=== PATIENT | female | born 1980 | race Two or more races ===

== ENCOUNTER 2025-02-22 09:08 | Emergency (ER) | payer MEDICAID, OTHER ==
[~2025-02-22] VITALS: Ht 157.5 cm; Wt 75.5 kg
--- NOTE | 2025-02-22 10:46 | ED.PDOC ---
History of Present Illness HPI Comments 44F presents to the ER w/ prior SHx of Cholecystectomy and the c/c of back pain. Pt reports on initially having LLQ pain for 10 days which radiates to the left lower back. Denies any other symptoms at this time. Denies Urinary Symptoms, chills, fever, N/V/D, SOB, CP. Denies any other associated symptom's, modifiers, or recent injuries or sick contact at this time. Chief Complaint: Flank Pain Time Seen by MD: 10:45 Reviewed Notes: Nurses Notes, Medications, Allergies Allergies: Coded Allergies: NO KNOWN ALLERGIES (Unverified , 02/22/25) Information Source: Patient Mode of Arrival: Ambulatory Severity: Moderate Timing: Days Duration: Since onset, Days Prehospital treatment: None Past Medical History PAST MEDICAL HISTORY: Denies Surgical History: Cholecystectomy REFRACTORY MANAGER History: No Pertinent REFRACTORY MANAGER History Family History Family History: Reviewed,noncontributory to illness, Unknown Social History Smoker: Non-Smoker Alcohol: Denies ETOH Use Drugs: Denies Drug Use Lives In: Home Constitutional: denies: chills, diaphoresis, fatigue, fever, malaise, sweats, weakness, others EENTM: denies: blurred vision, double vision, ear bleeding, ear discharge, ear drainage, ear pain, ear ringing, eye pain, eye redness, hearing loss, mouth p ain, mouth swelling, nasal discharge, nose bleeding, nose congestion, nose pain, photophobia, tearing, throat pain, throat swelling, voice changes, others Respiratory: denies: cough, hemoptysis, orthopnea, SOB at rest, shortness of br eath, SOB with excertion, stridor, wheezing, others Cardiovascular: denies: chest pain, dizzy spells, diaphoresis, Dyspnea on exertion, edema, irregular heart beat, left arm pain, lightheadedness, palpitations, PND, syncope, others Gastrointestinal: reports: abdominal pain; denies: abdomen distended, blood streaked bowels, constipated, diarrhea, dysphagia, difficulty swallowing, hematemesis, melena, nausea, poor appetite, poor fluid intake, rectal bleeding, rectal pain, vomiting, others Genitourinary: denies: abnormal vagina bleeding, burning, dyspareunia, dysuria, flank pain, frequency, hematuria, incontinence, pain, , vagina discharge, urgency, others Neurological: denies: dizziness, fainting, headache, left sided numbness, left sided weakness, numbness, paresthesia, pre-existing deficit, right sided numbness, right sided weakness, seizure, speech problems, tingling, tremors, weakness, others Musculoskeletal: reports: back pain; denies: gout, joint pain, joint swelling, muscle pain, muscle stiffness, neck pain, others Integumetry: denies: bruises, change in color, change in hair/nails, dryness, laceration, lesions, lumps, rash, wounds, others Allergic/Immunocompromised: denies: Difficulty Healing, Frequent Infections, Hives, Itching, others Hematologic/Lymphatic: denies: anemia, blood clots, easy bleeding, easy bruising, swollen glands, others Endocrine: denies: excessive hunger, excessive sweating, excessive thirst, excessive urination, flushing, intolerance to cold, intolerance to heat, unexplained weight gain, unexplained weight loss, others Psychiatric: denies: anxiety, bipolar disorder, depression, hopeless, panic d isorder, schizophrenia, sleepless, suicidal, others All Other Systems: Reviewed and Negative Physical Exam General Appearance: Moderate Distress, Normal HEENT: Normal ENT Inspection, Pharynx Normal, TMs Normal Neck: Full Range of Motion, Non-Tender, Normal, Normal Inspection Respiratory: Chest Non-Tender, Lungs Clear, No Accessory Muscle Use, No Respiratory Distress, Normal Breath Sounds Cardiovascular: No Edema, No JVD, No Murmur, No Gallop, Normal Peripheral Pulses, Regular Rate/Rhythm Breast Exam: Deferred Gastrointestinal: No Organomegaly, Non Tender, No Pulsatile Mass, Normal Bowel Sounds, Soft Genitalia: Deferred Pelvic: Deferred Rectal: Deferred Extremities: No calf tenderness, Normal capillary refill, Normal inspection, Normal range of motion, Non-tender, No pedal edema Musculoskeletal : Apperance: Normal Neurologic: Alert, flavoring oil filterer II-XII nml as Tested, No Motor Deficits, Normal Affect, Normal Mood, No Sensory Deficits Cerebellar Function: Normal Reflexes: Normal Skin: Dry, Normal Color, Warm Peripheral Pulses: 3+ Radial (R), 3+ Radial (L) Lymphatic: No Adenopathy Was a procedure done? Was a procedure done?: No Differential Dx Considerations may include: Anemia Electrolyte imbalance X-Ray, Labs, Meds, VS Vital Signs Date Time Temp Pulse Resp B/P (MAP) Pulse Ox O2 Delivery O2 Flow Rate FiO2 02/22/25 11:26 98.2 99 19 119/66 (83) 100 98.2 02/22/25 11:26 99 19 100 Room Air 02/22/25 09:11 98.9 108 17 139/98 100 98.9 Current Medications Medications (Trade) Dose Ordered Sig/Randi Route Start Time Stop Time Status Last Admin Ketorolac Tromethamine (Toradol Injection) 30 mg ONCE ONCE IV 02/22/25 10:45 02/22/25 10:46 DC 02/22/25 12:44 Sodium Chloride 1,000 ml @ 1,000 mls/hr Q1H ONCE IV 02/22/25 10:45 02/22/25 11:44 DC 02/22/25 11:30 Patient alert. Complaining of flank pain. Vitals stable. Answering all questions. Abdomen is soft nontender. Saturation pristine on room air. Heart rate within normal limits. CT scan of the abdomen reviewed does not show any acute changes other than constipation. Was given prescription of Colace. Explained to the patient. Was told to follow up with her primary care physician. Was told to come back if there is any problem. Time of 1ST Reevaluation: 11:15 Reevaluation 1ST: Unchanged Patient Education/Counseling: Diagnosis, Treatment, Prognosis Family Education/Counseling: No Family Present SEPSIS Sepsis Screen Date sepsis recognized/suspect: Feb 22, 2025 Time Sepsis recognized/suspect: 909 Recent Procedure: No On Antibiotic Therapy: No Respiratory Rate >20: No Heart Rate >90: Yes Temp<36 C (96.8 F) or >38.3 C: No SBP <90 or MAP <65 mmHG: No New Acute Mental Status Change: No Is the patient on CPAP, BIPAP,: No Physician Orders Urinalysis (02/22/25 10:36) Ct Ab Pel Wo Con-No Oral Or Iv (02/22/25 10:36) Vital Signs Date Time Temp Pulse Resp B/P (MAP) Pulse Ox O2 Delivery O2 Flow Rate FiO2 02/22/25 11:26 98.2 99 19 119/66 (83) 100 98.2 02/22/25 11:26 99 19 100 Room Air 02/22/25 09:11 98.9 108 17 139/98 100 98.9 Medications Medications Dose Ordered Sig/Randi Route Start Time Stop Time Status Last Admin Dose Admin Ketorolac Tromethamine 30 mg ONCE ONCE IV 02/22/25 10:45 02/22/25 10:46 DC 02/22/25 12:44 Sodium Chloride 1,000 ml @ 1,000 mls/hr Q1H ONCE IV 02/22/25 10:45 02/22/25 11:44 DC 02/22/25 11:30 Departure 1 Departure Time of Disposition: 13:15 Impression: Primary Impression: Musculoskeletal pain Additional Impression: Constipation Qualified Codes: K59.01 - Slow transit constipation Disposition: HOME / SELF CARE / HOMELESS Condition: Good e-Prescriptions Docusate Sodium (Colace) 100 Mg Cap 100 MG PO DAILY for 5 Days, #5 CAP Prov: ANDRIY GARZA MD 02/22/25 Discharged With: Self Critical Care Note Critical Care Time?: No Stability Stability form required: No Heart Score Heart Score: Heart Score Response (Comments) Value History N/A 0 EKG N/A 0 Age N/A 0 Risk Factors N/A 0 Troponin N/A 0 Total 0 I personally scribed for ANDRIY GARZA MD ([email or web address]) on 02/22/25 at 10:46. Electronically submitted by Augustus Brooks ([email or web address]). ANDRIY GARZA MD Feb 22, 2025 10:46
[2025-02-22] MEDS: SODIUM CHLORIDE 0.9% 1,000 ML IV ONE (11:30)
--- NOTE | 2025-02-22 11:42 | DVH ---
EXAM: CT CT AB PEL WO CON-NO ORAL OR IV HISTORY: stone COMPARISON: None TECHNIQUE: Helical CT images of the abdomen and pelvis were performed without IV contrast. Sagittal a nd coronal reformatted images were obtained. This CT exam was performed using one or more of the foll owing dose reduction techniques: Automated exposure control, adjustment of the mA and/or kv according to patient size, or the use of iterative reconstruction techniques. Radiation Dose: Abdomen/Pelvis: CTDIvol 8.31 mGy, DLP 441.89 mGy*cm. FINDINGS: CT abdomen: The lung bases are clear. The heart is not enlarged. The gallbladder is surgically absent . There is a simple cyst in the central aspect of the liver adjacent to the gallbladder fossa. The n oncontrast spleen, pancreas, kidneys, and adrenal glands are unremarkable. No abdominal aortic aneury sm. There is a small fatty umbilical hernia. CT pelvis: No abnormal bowel dilatation, free air, or free fluid. There is fecal retention in the col on. The appendix and urinary bladder are unremarkable. There are phleboliths in the pelvis. There is mild lumbar degenerative disc disease. 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 IMPRESSION: 1. Postoperative changes of cholecystectomy. 2. Fecal retention in the colon suggestive of constipation. 3. Mild degenerative changes of the spine and hips. 4. No evidence of urinary tract obstruction, bowel obstruction, acute appendicitis, or other acute pr ocess in the abdomen or pelvis.
[2025-02-22] MEDS: KETOROLAC TROMETH 30 MG/ML 1ML VIAL IV ONE (12:44)
[2025-02-22] MEDS ORDERED: DOCU-94 PO (13:17)
[2025-02-22 13:52] VITALS: BP 121/69; PULSE 83; RESP 18; TEMP 97.6; O2SAT 100
== END 2025-02-22 13:56 | disposition home or self-care (01) ==
LOC: ER 09:08 → EEVIPCON 09:08 → ER 13:52
DX: K59.00 Constipation, unspecified (principal); R10.32 Left lower quadrant pain; Z90.49 Acquired absence of other specified parts of digestive tract
CPT/HCPCS: 74176; 96361; 96374; 99285; J1885; J7030